=== PATIENT | female | born 1985 | race African-American/Black ===

== ENCOUNTER 2019-01-05 23:22 | Emergency (ER) | payer OTHER ==
[2019-01-05 23:56] VITALS: BP 102/69; PULSE 63; TEMP 98.4; BMI 26.4
[2019-01-05] MEDS ORDERED: diphenhydrAMINE HCL 25 MG CAPSULE (FP) PO ONE (23:59)
--- NOTE | 2019-01-05 23:59 | PDOC ---
History of Present Illness - General Chief Complaint: Allergic Reaction Stated Complaint: ALLERGIC REACTION Time Seen by Provider: 01/05/19 23:54 History Source: Patient Exam Limitations: No Limitations Past History - Past Medical History Allergies/Adverse Reactions: Allergies Allergy/AdvReac Type Severity Reaction Status Date / Time Penicillins Allergy Severe Hives Verified 01/05/19 23:49 shellfish derived Allergy Severe Difficulty Verified 01/05/19 23:49 Breathing COPD: No Other medical history: Pt denies - Surgical History GI Surgery: Yes (Gastric bypass) - Suicide/Smoking/Psychosocial Hx Smoking History: Never smoked Have you smoked in the past 12 months: No Information on smoking cessation initiated: No Hx Alcohol Use: No Drug/Substance Use Hx: No *Physical Exam - Vital Signs Last Vital Signs Temp Pulse Resp BP Pulse Ox 98.4 F 63 18 102/69 100 01/05/19 23:50 01/05/19 23:50 01/05/19 23:50 01/05/19 23:50 01/05/19 23:50 *DC/Admit/Observation/Transfer Diagnosis at time of Disposition: Allergic reaction - Discharge Dispostion Disposition: HOME Decision to Admit order: No - Referrals Referrals: [facility] [facility] [Provider Group] - Patient Instructions Printed Discharge Instructions: DI Fish Allergy Additional Instructions: You have been seen for itching. You improved with benadryl. Please continue taking benadryl as prescribed. Thank you. - Post Discharge Activity
[2019-01-06] MEDS ORDERED: diphenhydrAMINE HCL 25 MG CAPSULE (FP) PO ONE (00:06)
--- NOTE | 2019-01-06 01:25 | PDOC ---
Documentation entered by Mis Cutler SCRIBE, acting as scribe for Maria Elena Pickett MD. Maria Elena Pickett MD: This documentation has been prepared by the He dos santos Brenda, SCRIBE, under my direction and personally reviewed by me in its entirety. I confirm that the documentation accurately reflects all work, treatment, procedures, and medical decision making performed by me. Attending Attestation - Resident Resident Name: SudarshanRomel - ED Attending Attestation I have performed the following: I have examined & evaluated the patient, The case was reviewed & discussed with the resident, I agree w/resident's findings & plan, Exceptions are as noted - HPI HPI: 01/06/19 00:58 The patient is a 33 year old female with no reported significant past medical history who presents to the ED with c/o itching for past 3 nights when she sleeps on the hotel sheets Allergies: Penicillins, shellfish derived 01/06/19 01:20 - Physicial Exam PE: 01/06/19 01:21 head ncat neck supple oral exam uvula midline,no edema lungs cta b/l cvs [id number] abd nontender skin no bug bites appreciated ,no abscess, no hives, no vesicles, no rashes, there is some mild desquamation on her skin (she states this is chronic ) neuro no focal neuro deficits - Medical Decision Making 01/06/19 01:24 pt has c/o pruritus pt instructed to take benadrly and try ice for itchy skin
== END 2019-01-06 01:26 | disposition home or self-care (01) ==
LOC: JER 23:22
DX: T78.49XA Other allergy, initial encounter (principal); X58.XXXA Exposure to other specified factors, initial encounter
CPT/HCPCS: 99281-25